=== PATIENT | female | born 1995 | race African-American/Black ===

== ENCOUNTER 2022-11-23 11:48 | Emergency (ER) | payer SELFPAY ==
[2022-11-23] MEDS ORDERED: Acetaminophen 500 MG TAB ONE (12:51)
== END 2022-11-23 14:00 | disposition home or self-care (01) ==
LOC: ERS 11:48
DX: M75.102 Unspecified rotator cuff tear or rupture of left shoulder, not specified as traumatic (principal); Y93.E5 Activity, floor mopping and cleaning; F17.290 Nicotine dependence, other tobacco product, uncomplicated